=== PATIENT | male | born 1960 | race American Indian/Alaskan Native ===

== ENCOUNTER 2022-05-23 08:57 | Emergency (ER) | payer MEDICARE ==
[2022-05-23 09:39] VITALS: BP 131/80
== END 2022-05-24 01:53 | disposition left against medical advice (07) ==
LOC: ED 08:57
DX: M25.562 Pain in left knee (principal); M25.561 Pain in right knee; Z53.21 Procedure and treatment not carried out due to patient leaving prior to being seen by health care provider